=== PATIENT | male | born 1940 | race Caucasian/White ===

== ENCOUNTER 2018-11-12 11:11 | Emergency (ER) | payer MEDICARE ==
[2018-11-12] MEDS ORDERED: ONDANSETRON HCL INJ/PF 4 MG/2 ML SDV ONE (11:39)
[2018-11-12] MEDS ORDERED: HYDROMORPHONE HCL INJ/PF 2 MG/ML AMPULE ONE (11:40)
[2018-11-12] MEDS ORDERED: ONDANSETRON HCL INJ/PF 4 MG/2 ML SDV IV ONE ×2 (11:40→13:04)
[2018-11-12] MEDS ORDERED: HYDROMORPHONE HCL INJ/PF 2 MG/ML AMPULE IV ONE ×2 (11:40→13:04)
[2018-11-12] MEDS ORDERED: NORMAL SALINE 500 ML IV ONE (11:41)
--- NOTE | 2018-11-12 12:31 | RADIOLOGY REPORT (SQ) ---
EXAM DESCRIPTION: SHOULDER LEFT 2 OR MORE VIEWS COMPLETED DATE/TIME: 11/12/2018 12:01 pm REASON FOR STUDY: Fell on left shoulder. COMPARISON: None. NUMBER OF VIEWS: Two views TECHNIQUE: AP and Y-view images acquired of the left shoulder. LIMITATIONS: None. FINDINGS: MINERALIZATION: Osteopenic BONES: Acute comminuted fracture left proximal humerus metaphysis. This spares the greater tuberosit y and articular surface. No significant angulation. Mild foreshortening at the fracture site. JOINTS: No glenohumeral dislocation. No acromioclavicular joint widening. VISUALIZED LUNGS AND RIBS: No pneumothorax. No rib fracture. SOFT TISSUES: No radiopaque foreign body. OTHER: No other significant finding. IMPRESSION: Acute comminuted fracture left proximal humeral metaphysis TECHNICAL DOCUMENTATION: JOB ID: [id number] [employer]- All Rights Reserved Reading location - IP/workstation name: [email or web address]
--- NOTE | 2018-11-12 13:50 | ER Document Report ---
ED Fall - General Chief Complaint: Arm Injury Stated Complaint: SHOULDER PAIN Time Seen by Provider: 11/12/18 11:40 Primary Care Provider: ASMITA PETERS MD [ACTIVE STAFF] - 11/16/18 8:00 am Notes: Patient was working on a ladder and got his foot tangled in the ladder on the bottom step causing him to fall landing on his left shoulder which is very painful at this time. He denies any other injuries. Specifically, he denies any head or neck injuries. Denies any rib injuries or difficulty breathing. Denies any abdominal pains. No pain throughout the full course of his spine. No neurologic deficits. Never unconscious. No other complaints at this time. TRAVEL OUTSIDE OF THE [place] IN LAST 30 DAYS: No - Related data Allergies/Adverse Reactions: No Known Allergies Allergy (Unverified 11/12/18 11:26) Past Medical History - Social History Smoking Status: Former Smoker Chew tobacco use (# tins/day): No Frequency of alcohol use: Rare Drug Abuse: None Family History: Reviewed & Not Pertinent Patient has suicidal ideation: No Patient has homicidal ideation: No - Past Medical History Cardiac Medical History: Reports: Hx Hypertension Past Surgical History: Reports: Hx Appendectomy, Hx Cholecystectomy Review of Systems - Review of Systems Notes: REVIEW OF SYSTEMS: CONSTITUTIONAL : Denies fever. EENT: Denies eye, ear, nose or mouth or throat pain or other symptoms. CARDIOVASCULAR: Denies chest pain. RESPIRATORY: Denies cough, chest congestion, or shortness of breath. GASTROINTESTINAL: Denies abdominal pain or nausea, vomiting, or diarrhea. GENITOURINARY: Denies difficulty or painful urinating, urinary frequency, blood in urine. MUSCULOSKELETAL: Denies back or neck pain. Complains of severe pain in the left shoulder area. SKIN: Denies rash or skin lesions. NEUROLOGICAL: Denies LOC or altered mental status. Denies headache. Denies sensory loss or motor deficits. ALL OTHER SYSTEMS REVIEWED AND NEGATIVE. Physical Exam - Vital signs Vitals: Resp Pulse Ox 15 95 11/12/18 11:19 11/12/18 11:19 Interpretation: Normal Notes: PHYSICAL EXAMINATION: GENERAL: Well-appearing, in no acute distress. HEAD: Atraumatic, normocephalic. EYES: Pupils equal round and reactive to light, extraocular movements intact. ENT: oropharynx clear without exudates. Moist mucous membranes. NECK: Normal range of motion, supple. LUNGS: Breath sounds clear and equal bilaterally. No rib tenderness. HEART: Regular rate and rhythm without murmurs. ABDOMEN: Soft, nontender. No guarding or rebound. No masses. BACK: No tenderness throughout entire back. EXTREMITIES: Left shoulder is extremely painful to touch or to move even the s lightest amount. Some swelling of the left shoulder region noted at this time. Patient has an excellent pulse at the left radial artery at the wrist. Capillary refill in the fingers pink and warm. All other joints with normal range of motion without pain. NEUROLOGICAL: Normal speech, gait not tested because of pain in the shoulder. Normal sensory, motor, and reflex exams. Awake, alert, and oriented x3. PSYCH: Normal mood, normal affect. SKIN: Warm, dry, no rashes. Course - Re-evaluation Re-evalutation: 11/12/18 18:39 Discussed the case with Dr. Peters who recommends shoulder immobilizer, pain medications, and follow-up in his office on Thursday at 8 AM. - Vital Signs Vital signs: Temp Pulse Resp BP Pulse Ox 14 144/99 H 97 11/12/18 14:01 11/12/18 14:00 11/12/18 14:01 - Diagnostic Test Radiology results interpreted by me: 11/12/18 18:36 X-ray shows a comminuted fracture of the humeral head. The humeral head is located in the glenoid fossa, where it is expected. Procedures - Immobilization Left Shoulder Pre-Proc Neuro Vasc Exam: Normal Immobilizer type: Shoulder immobilizer Performed by: PCT Post-Proc Neuro Vasc Exam: Normal - Excellent pulse remains at the left wrist and the radial artery there., Unchanged from pre-exam Discharge - Discharge Clinical Impression: Fracture of proximal humerus Condition: Stable Disposition: HOME, SELF-CARE Additional Instructions: Fracture Proximal Humerus There is a fracture at the upper end of the humerus, near the shoulder joint. Your physician has assessed the fracture's severity and has determined that it will heal well without surgery or "setting." The typical shoulder fracture doesn't need a cast. It's best treated by binding the arm down with a special sling. Ice packs are used to reduce pain and swelling. After early healing has occurred, [id number] exercises are prescribed for the shoulder. Complete healing may take three to six weeks, depending on the age of the patient and the severity of the fracture. Call the doctor or return at once if the arm becomes numb, or if pain or swelling become severe. Oral Narcotic Medication You have been given a prescription for pain control. This medication is a narcotic. It's best taken with food, as nausea can result if taken on an empty stomach. Don't operate machinery or drive within six hours of taking this medication. Do not combine this medicine with alcohol, or with any medication which can cause sedation (such as cold tablets or sleeping pills) unless you get permission from the physician. Narcotics tend to cause constipation. If possible, drink plenty of fluids and eat a diet high in fiber and fruits. Antinausea Medication You have been given a medication to suppress nausea and vomiting. This type of medication can be given as a shot, pill, or suppository. It will usually last for many hours. Pills and shots usually last six to eight hours, suppositories last about 12 hours. For the typical illness, only one or two doses of the medication may be necessary. Mild lightheadedness may occur. This type of medicine can cause drowsiness. Do not drive or operate dangerous machinery while under its influence. Do not mix with alcohol. See your doctor at once if you have muscle spasms or tightness, or uncontrollable motions (particularly of the neck, mouth, or jaw). Persistent vomiting or severe lightheadedness should also be evaluated by the physician. Sling as Treatment A sling has been applied to protect the injury. This is adequate immobilization for this type of injury -- no cast or brace is required. Keep the sling on at all times until instructed to remove it by the doctor. Even though no cast or splint is needed, you must use the sling. If you use the arm too soon, it may not heal properly! If necessary, the sling can be adjusted for comfort. Return if you are encountering problems with the sling. I have spoken with Dr. Suarez and he wishes to see you in his office Thursday at 8 AM. You do not need to call for an appointment, just show up at his office at 8 AM. Prescriptions: Hydromorphone HCl [Dilaudid 2 mg Tablet] 2 mg PO Q4HP PRN #10 tablet PRN Reason: Ondansetron [Zofran Odt 4 mg Tablet] 1 - 2 tab PO Q4H PRN #15 tab.rapdis PRN Reason: For Nausea/Vomiting Referrals: ASMITA PETERS MD [ACTIVE STAFF] - 11/16/18 8:00 am
[2018-11-12 14:15] VITALS: BP 144/99
== END 2018-11-12 14:27 | disposition home or self-care (01) ==
LOC: ER 11:11
DX: S42.292A Other displaced fracture of upper end of left humerus, initial encounter for closed fracture (principal); M25.512 Pain in left shoulder; W11.XXXA Fall on and from ladder, initial encounter; I10 Essential (primary) hypertension; Z87.891 Personal history of nicotine dependence
CPT/HCPCS: 96376; 99283; 96361; 96374; 96375; 73030; L3650; J1170; J2405; J7040

== ENCOUNTER 2018-11-17 07:49 | Day surgery (SDC) | payer MEDICARE, OTHER ==
[~2018-11-17 07:49] MED LIST: CEFAZOLIN 2 GM/D5W RTU 2 GM/50 ML RTUPB IV PRN
[2018-11-17] MEDS ORDERED: CEFAZOLIN 2 GM/D5W RTU 2 GM/50 ML RTUPB IV ONE (08:25)
[2018-11-17] MEDS ORDERED: LACTATED RINGERS 1000 ML IV PRN (08:49)
[2018-11-17 08:52] LABS: HEMATOCRIT 41.6 % (37.9-51.0); HEMOGLOBIN 14.2 g/dL (13.5-17.0); MEAN CORPUSCULAR HEMOGLOBIN 30.6 pg (27.0-33.4); MEAN CORPUSCULAR VOLUME 90 fl (80-97); PLATELET COUNT 188 10^3/uL (150-450); RED BLOOD COUNT 4.62 10^6/uL (4.35-5.55); RED CELL DISTRIBUTION WIDTH 13.5 % (11.5-14.0); WHITE BLOOD COUNT 7.9 10^3/uL (4.0-10.5)
--- NOTE | 2018-11-17 08:54 | RADIOLOGY REPORT (SQ) ---
EXAM DESCRIPTION: CHEST SINGLE VIEW COMPLETED DATE/TIME: 11/17/2018 8:30 am REASON FOR STUDY: PREOP COMPARISON: None. EXAM PARAMETERS: NUMBER OF VIEWS: One view. TECHNIQUE: Single frontal radiographic view of the chest acquired. RADIATION DOSE: NA LIMITATIONS: None. FINDINGS: LUNGS AND PLEURA: Ill-defined minimal right basilar opacities. Additional a opacities ove rlie the left mid lung, possibly calcified pleural plaque. No dense consolidation. No pleural effus ion or pneumothorax . MEDIASTINUM AND HILAR STRUCTURES: No masses. Contour normal. HEART AND VASCULAR STRUCTURES: Heart normal in size. Normal vasculature. BONES: Partially viewed comminuted left proximal humerus fracture. No new bony abnormality. HARDWARE: Metallic D shaped density overlies mediastinum, presumably outside the patient. OTHER: No other significant finding. IMPRESSION: Minimal right basilar opacities possibly atelectasis or infection. Additional irregular opacities overlie the left mid lung, possibly calcified pleural plaque. CT or comparison with prior could be considered for confirmation. Partially evaluated left proximal humerus fracture. TECHNICAL DOCUMENTATION: JOB ID: [id number] [employer]- All Rights Reserved Reading location - IP/workstation name: [email or web address]
[2018-11-17] MEDS ORDERED: ACETAMINOPHEN 1,000 MG/100 ML RTUPB IV ONE (08:57)
[2018-11-17] MEDS ORDERED: MIDAZOLAM 2 MG/2 ML INJ ONE (08:57)
[2018-11-17] MEDS ORDERED: PROPOFOL INJ 200 MG/20 ML VIAL IV ONE (08:57)
[2018-11-17] MEDS ORDERED: EPHEDRINE SULFATE INJ 50 MG/1 ML AMPULE ONE (08:57)
[2018-11-17] MEDS ORDERED: HYDROMORPHONE HCL INJ/PF 2 MG/ML AMPULE ONE (08:57)
[2018-11-17] MEDS ORDERED: FENTANYL CITRATE INJ/PF 100 MCG/2 ML AMPUL ONE (08:57)
[2018-11-17] MEDS: HYDROMORPHONE HCL INJ/PF 2 MG/ML AMPULE ONE ×4 (08:58→13:50)
[2018-11-17 09:16] LABS: ANION GAP 8 (5-19); BLOOD UREA NITROGEN 32 mg/dL (7-20); CARBON DIOXIDE 28 mmol/L (22-30); CHLORIDE 103 mmol/L (98-107); GLUCOSE 125 mg/dL (75-110); POTASSIUM 4.6 mmol/L (3.6-5.0); SODIUM 138.7 mmol/L (137-145)
[2018-11-17] MEDS ORDERED: BUPIVACAINE HCL 0.5 % INJ/PF 30 ML SDV ONE (10:00)
[2018-11-17] MEDS ORDERED: PROMETHAZINE HCL INJ 25 MG/1 ML VIAL ONE (10:06)
--- NOTE | 2018-11-17 11:42 | Discharge Summary ---
Discharge Summary (SDC) - Discharge Final Diagnosis: Left proximal humerus fracture Date of Surgery: 11/17/18 Discharge Date: 11/18/18 Condition: Good Treatment or Instructions: Active range of motion as tolerated Prescriptions: Hydromorphone HCl [Dilaudid 2 mg Tablet] 2 mg PO Q4 PRN #40 tablet PRN Reason: Referrals: VISHAL BUSTILLO AGNP [Primary Care Provider] - Discharge Diet: As Tolerated, Regular Respiratory Treatments at Home: Deep Breathing/Coughing Discharge Activity: Balance Activity w/Rest, No tub bath Home Care Assistance: None Needed Report the Following to Your Physician Immediately: Shortness of Breath, Fever over 101 Degrees, Drainage-Foul Smelling
--- NOTE | 2018-11-17 11:44 | Operative Report ---
Operative Report DATE OF SURGERY: 11/17/18 PREOPERATIVE DIAGNOSIS: Left proximal humerus fracture OPERATION: Open reduction internal fixation left proximal humerus fracture SURGEON: ASMITA PETERS ANESTHESIA: GA ESTIMATED BLOOD LOSS: 100 PROCEDURE: With the patient in a beachchair position on the operating table left upper extremity and forequarter prepped and draped in a sterile fashion. A standard deltopectoral approach to the proximal humerus was performed. The underlying fracture is visualized. A Nata titanium proximal humeral plate, 5 holes, is applied to the proximal aspect and secured with locking screws. The plate is then brought to the diaphyseal section of the fracture and secured with both locking and nonlocking screws. The fracture reduction and hardware placement are evaluated fluoroscopically and felt to be adequate. At this point wound is irrigated bulb lavage. Is closed in layers interrupted Vicryl followed by sofi. A sterile compressive dressing is applied and the patient's return to the PACU in satisfactory condition.
[2018-11-17] MEDS ORDERED: DIPHENHYDRAMINE HCL 50 MG/ML VIAL IV PRN (12:51)
[2018-11-17] MEDS ORDERED: FENTANYL CITRATE INJ/PF 100 MCG/2 ML AMPUL IV PRN ×3 (12:51)
[2018-11-17] MEDS ORDERED: MEPERIDINE HCL/PF INJ 25 MG/1 ML DISP.SYRIN IV PRN (12:51)
[2018-11-17] MEDS ORDERED: ONDANSETRON HCL INJ/PF 4 MG/2 ML SDV IV PRN (12:51)
[2018-11-17] MEDS ORDERED: MORPHINE SULFATE 10 MG/ML INJ IV PRN (12:51)
--- NOTE | 2018-11-17 13:22 | RADIOLOGY REPORT (SQ) ---
EXAM DESCRIPTION: NO CHG FLUORO; SHOULDER LEFT 2 OR MORE VIEWS COMPLETED DATE/TIME: 11/17/2018 12:46 pm REASON FOR STUDY: ORIF LEFT SHOULDER ASST WITH FLUORO IN OR COMPARISON: None. FINDINGS: 5 images obtained during open reduction internal fixation of left shoulder fracture. Fluoro time 0.7 minutes. Please correlate with operative note. TECHNICAL DOCUMENTATION: JOB ID: [id number] Reading location - IP/workstation name: [email or web address]
--- NOTE | 2018-11-17 13:22 | RADIOLOGY REPORT (SQ) ---
EXAM DESCRIPTION: NO CHG FLUORO; SHOULDER LEFT 2 OR MORE VIEWS COMPLETED DATE/TIME: 11/17/2018 12:46 pm REASON FOR STUDY: ORIF LEFT SHOULDER ASST WITH FLUORO IN OR COMPARISON: None. FINDINGS: 5 images obtained during open reduction internal fixation of left shoulder fracture. Fluoro time 0.7 minutes. Please correlate with operative note. TECHNICAL DOCUMENTATION: JOB ID: [id number] Reading location - IP/workstation name: [email or web address]
[2018-11-17] MEDS ORDERED: HYDROMORPHONE HCL 2 MG TABLET ONE (13:52)
[2018-11-17] MEDS ORDERED: PHENYLEPHRINE HCL INJ/PF 10 MG/1 ML SDV ONE (13:56)
[2018-11-17] MEDS ORDERED: ROCURONIUM BROMIDE INJ 50 MG/5 ML VIAL IV ONE (13:56)
[2018-11-17] MEDS ORDERED: SUCCINYLCHOLINE CHLORIDE INJ 200 MG/10 ML VIAL ONE (13:56)
[2018-11-17] MEDS ORDERED: ONDANSETRON HCL INJ/PF 4 MG/2 ML SDV ONE (13:56)
[2018-11-17] MEDS ORDERED: DEXAMETHASONE SOD PHOSPHATE INJ 4 MG/1 ML VIAL ONE (13:56)
[2018-11-17 15:08] VITALS: BP 136/77
--- NOTE | 2018-11-18 10:58 | EKG REPORT ---
SEVERITY:- ABNORMAL ECG - SINUS RHYTHM VENTRICULAR BIGEMINY LEFT AXIS DEVIATION BORDERLINE R WAVE PROGRESSION, ANTERIOR LEADS : Confirmed by: Israel Schulz 18-Nov-2018 10:57:47
== END 2018-11-17 14:50 | disposition home or self-care (01) ==
LOC: OROUT 07:49
PROVIDERS: ATTEND Orthopaedic Surgery
DX: S42.212A Unspecified displaced fracture of surgical neck of left humerus, initial encounter for closed fracture (principal); W10.9XXA Fall (on) (from) unspecified stairs and steps, initial encounter; I10 Essential (primary) hypertension; E66.9 Obesity, unspecified; Z68.31 Body mass index [BMI] 31.0-31.9, adult; Z79.899 Other long term (current) drug therapy; Z87.891 Personal history of nicotine dependence
CPT/HCPCS: 36415; 85027; 80048; 71045; 73030; 93005; 93010; 23615; C1713 ×8; J2250; J3490 ×3; J1100; A9270; J1170; J2370; J2550; J0330; J2405; J2704; J0690; J0131; 01630; J3010